=== PATIENT | male | born 1980 | race Caucasian/White ===

== ENCOUNTER 2017-10-27 21:57 | Emergency (ER) | END 2017-10-28 03:06 | disposition left against medical advice (07) ==

== ENCOUNTER 2017-11-06 21:24 | Emergency (ER) | END 2017-11-07 02:10 | disposition home or self-care (01) ==

== ENCOUNTER 2019-01-01 03:49 | Emergency (ER) | payer SELFPAY ==
[~2019-01-01] VITALS: Ht 180.3 cm; Wt 79.6 kg
[~2019-01-01 03:49] MED LIST: BACTDS PO; CEPH-443 PO; HYDR-3498 PO; IBUP-1542 PO
[2019-01-01 03:51] VITALS: BP 153/79; PULSE 103; RESP 19; Ht 180.3 cm; Wt 79.6 kg
== END 2019-01-01 04:05 | disposition left against medical advice (07) ==
LOC: FTE 03:49
DX: Z53.21 Procedure and treatment not carried out due to patient leaving prior to being seen by health care provider (principal)